=== PATIENT | female | born 2000 | race Two or more races ===

== ENCOUNTER 2022-10-07 14:19 | Emergency (ER) | payer SELFPAY ==
[~2022-10-07] VITALS: Ht 162.6 cm; Wt 86.4 kg
[2022-10-07 15:25] VITALS: BP 106/55
[2022-10-07] MEDS ORDERED: ONDANSETRON HCL 4 MG/2 ML VIAL IV ONE (16:30)
[2022-10-07] MEDS ORDERED: SODIUM CHLORIDE 0.9% 1,000 ML IV ONE (16:30)
[2022-10-07] MEDS ORDERED: ACETAMINOPHEN 500 MG TAB PO ONE (16:30)
[2022-10-07] MEDS ORDERED: IPRATROPIUM BROM 0.5 MG/2.5ML INH SOL NEB ONE (17:00)
[2022-10-07] MEDS ORDERED: ALBUTEROL SULF 2.5 MG/0.5ML(0.5%) NEB SOLN NEB ONE (17:00)
[2022-10-07] MEDS ORDERED: ALBU108A5 IN (17:01)
[2022-10-07] MEDS ORDERED: ONDA-144 PO (17:16)
[2022-10-07] MEDS ORDERED: ACET1CAP14 PO (17:28)
== END 2022-10-07 18:22 | disposition home or self-care (01) ==
LOC: ER 14:19
DX: J10.1 Influenza due to other identified influenza virus with other respiratory manifestations (principal); Z20.822 Contact with and (suspected) exposure to COVID-19
CPT/HCPCS: 36415; 71045; 87426; 87804; 94640; 96361; 96374; 99284; J2405; J7030; J7644